=== PATIENT | female | born 1985 | race Two or more races ===

== ENCOUNTER 2020-12-08 23:36 | Emergency (ER) | payer OTHER, MEDICAID ==
[~2020-12-08] VITALS: Ht 157.5 cm; Wt 86.2 kg
--- NOTE | 2020-12-08 23:45 | NUR ---
Dr. Alvares at bedside for MSE.
[2020-12-09] MEDS ORDERED: LORAZEPAM 2 MG/1 ML VIAL IM ONE
[2020-12-09] MEDS ORDERED: IV NORMAL SALINE 500 ML BAG IV ONE
[2020-12-09] MEDS ORDERED: diphenhydrAMINE 50 MG/1 ML VIAL IM ONE
--- NOTE | 2020-12-09 00:27 | NUR ---
Xray at bedside.
[2020-12-09 00:37] LABS: HEMATOCRIT 29.9 % (31.2-41.9); MEAN CORPUSCULAR HEMOGLOBIN 22.8 uug (24.7-32.8); MEAN CORPUSCULAR VOLUME 72.3 fL (75.5-95.3); PLATELET COUNT (AUTO) 367 K/uL (179-408)
[2020-12-09 00:42] LABS: CREATININE 0.8 mg/dL (0.6-1.3); POTASSIUM 3.8 mmol/L (3.5-5.1)
[2020-12-09] MEDS ORDERED: HYDROMORPHONE 1 MG/1 ML DISP.SYRIN IV ONE ×2 (00:45→01:30)
[2020-12-09] MEDS ORDERED: HYDROMORPHONE 1 MG/1 ML DISP.SYRIN ONE ×2 (00:53→01:49)
[2020-12-09 00:55] LABS: BILIRUBIN,DIRECT 0.1 mg/dL (0.0-0.2); BILIRUBIN,TOTAL 0.3 mg/dL (0.2-1.0)
[2020-12-09] MEDS ORDERED: ONDANSETRON 4 MG/2 ML VIAL IV ONE ×2 (01:30)
--- NOTE | 2020-12-09 01:50 | NUR ---
Dr. Alvares speaking with Dr. Og of [facility].
--- NOTE | 2020-12-09 03:01 | NUR ---
Patient discharged to home in stable condition. Written and verbal after care instructions given. Patient verbalizes understanding of instructions. Stressed follow up or return to ER for worsening s/s. Patient out of ER with steady gait, no acute signs of distress, VSS, all belongings taken, IV site discontinued, instructed not to drive, will uber home.
[2020-12-09 03:02] VITALS: BP 118/68
== END 2020-12-09 03:03 | disposition home or self-care (01) ==
LOC: ER 23:38
DX: F41.0 Panic disorder [episodic paroxysmal anxiety] (principal); F13.20 Sedative, hypnotic or anxiolytic dependence, uncomplicated; F11.10 Opioid abuse, uncomplicated; R00.0 Tachycardia, unspecified; Z98.2 Presence of cerebrospinal fluid drainage device; Z86.61 Personal history of infections of the central nervous system
CPT/HCPCS: 36415; 71045; 80048; 80076; 83880; 84443; 84484; 84702; 85025; 93005; 96361; 96374; 96375; 96376; 99285; J1170 ×2; J1200; J2060; J2405 ×2; 70030-TC; J7040